=== PATIENT | female | born 1975 | race Caucasian/White ===

== ENCOUNTER 2019-04-19 11:39 | Emergency (ER) | payer OTHER ==
[2019-04-19 12:25] VITALS: BP 122/57
--- NOTE | 2019-04-19 12:50 | UC ---
Back Pain HPI - HPI Summary HPI Summary: PER TRIAGE, Hurt back at work on Monday; noticed pain increasing in lower back on Monday. Has taken advil at home. Today experiencing trouble moving right leg and some intermittent numbness in the right lower extremity. Pain radiates downward with initiating walking or standing. Pain began after lifting many totes while at work. - History of Current Complaint Chief Complaint: UCBackPain Stated Complaint: WC BACK PAIN Time Seen by Provider: 04/19/19 12:42 Hx Obtained From: Patient Hx Last Menstrual Period: 04/09/19 Onset/Duration: Gradual Onset Timing: Constant Pain Intensity: 5 Aggravating Factor(s): Movement Alleviating Factor(s): Rest Associated Signs And Symptoms: Positive: Numbness - occasional R leg, Other - no saddle anesthesia. Negative: Fever, Weakness, Abdominal Pain, Flank Pain, Bladder Incontinence, Bowel Incontinence - Risk Factors Cauda Equina Risk Factors: Negative Epidural Abscess Risk Factors: Negative - Allergies/Home Medications Allergies/Adverse Reactions: Allergies Allergy/AdvReac Type Severity Reaction Status Date / Time cephalexin [From Keflex] Allergy Rash Verified 04/19/19 12:25 Home Medications: Home Medications Ascorbic Acid TAB* [Vitamin C TAB*] 500 mg PO DAILY 04/19/19 [History Confirmed 04/19/19] PMH/Surg Hx/FS Hx/Imm Hx Previously Healthy: Yes - Surgical History Surgical History: Yes Surgery Procedure, Year, and Place: partial hysterectomy 2016 - Family History Known Family History: Positive: Non-Contributory - Social History Occupation: Employed Full-time Alcohol Use: None Substance Use Type: None Smoking Status (MU): Never Smoked Tobacco Review of Systems All Other Systems Reviewed And Are Negative: Yes Constitutional: Negative: Fever, Chills Skin: Negative: Rash Gastrointestinal: Negative: Abdominal Pain Musculoskeletal: Positive: Decreased ROM - low back Neurological: Positive: Numbness - occasional R leg. Negative: Weakness Physical Exam Triage Information Reviewed: Yes Appearance: Well-Appearing Vital Signs: Initial Vital Signs Temp 97.3 F 04/19/19 12:17 Pulse 62 04/19/19 12:17 Resp 17 04/19/19 12:17 BP 122/57 04/19/19 12:17 Pulse Ox 100 04/19/19 12:17 Vital Signs Reviewed: Yes ENT: Positive: Normal ENT inspection Neck: Positive: Supple, Nontender, No Lymphadenopathy, Other: - c-spine non tender Respiratory: Positive: Lungs clear, Normal breath sounds Cardiovascular: Positive: RRR, No Murmur Abdomen Description: Positive: Nontender, No Organomegaly, Soft. Negative: Pulsatile Mass Bowel Sounds: Positive: Present Musculoskeletal: Positive: Other: - Back: no deformity or rash. no spinal tenderness. tender over S.I. joints. low back rom limited by pain/spasms. no sciatic nothc pain x 2. 5/5 strength, 2+ reflexex and sesnation intact x4. no saddle anesthesia. straight leg raises cause low back spasm only. able to stand on toes and heels. slow but steady gait. 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 Back Pain Course/Dx - Differential Dx/Diagnosis Differential Diagnosis/HQI/PQRI: Other - no concern for infection, acute abdomen , fx or cauda equina. hx and pe supports a radiculopathy(episodic). also possible sacroiliitis. Provider Diagnosis: Low back pain, Radicular leg pain, Sacro ilial pain Discharge - Sign-Out/Discharge Documenting (check all that apply): Patient Departure All imaging exams completed and their final reports reviewed: Yes - Discharge Plan Condition: Stable Disposition: HOME Prescriptions: Cyclobenzaprine TAB* [Flexeril 10 MG TAB*] 10 mg PO TID PRN #10 tab PRN Reason: Spasms - Back methylPREDNISolone [Medrol Dosepak 4 MG*] 0 mg PO .SEE ROCIO INSTRUCTION #1 tab Patient Education Materials: Back Pain (ED) Referrals: Christopher Richards MD [Medical Doctor] - 5 Days - Billing Disposition and Condition Condition: STABLE Disposition: Home
== END 2019-04-19 13:41 | disposition home or self-care (01) ==
LOC: UCCORT 11:39
DX: M54.5 Low back pain (principal); M54.10 Radiculopathy, site unspecified; M47.9 Spondylosis, unspecified; M53.3 Sacrococcygeal disorders, not elsewhere classified
CPT/HCPCS: 72202; 99202; G0463